=== PATIENT | female | born 1950 | race Two or more races ===

== ENCOUNTER 2023-08-23 17:18 | Emergency (ER) | payer OTHER ==
[~2023-08-23] VITALS: Ht 165.1 cm; Wt 54.8 kg
[2023-08-23 17:41] VITALS: BP 167/94; PULSE 103; RESP 16; O2SAT 97
[2023-08-23 19:05] LABS: Chloride 106 mmol/L (98-107); Potassium 2.6 mmol/L (3.5-5.1); Sodium 142 mmol/L (136-145)
[2023-08-23 19:06] LABS: Anion Gap 9 (5-15); Calcium 9.5 mg/dL (8.7-10.4); Carbon Dioxide 27 mmol/L (20-30)
[2023-08-23 19:11] LABS: BUN/Creatinine Ratio 13.8 (10.0-20.0); Blood Urea Nitrogen 16 mg/dL (9-23); Glucose 127 mg/dL (74-106)
[2023-08-23] MEDS ORDERED: POTASSIUM CHL 20MEQ/100ML 100 ML IV SCH (20:00)
== END 2023-08-23 20:33 | disposition left against medical advice (07) ==
LOC: ER 17:18
DX: E87.6 Hypokalemia (principal); I10 Essential (primary) hypertension; E11.9 Type 2 diabetes mellitus without complications; Z88.5 Allergy status to narcotic agent
CPT/HCPCS: 36415; 80048